=== PATIENT | female | born 1975 | race Caucasian/White ===

== ENCOUNTER → 2023-12-02 | Outpatient (CLI) | payer MEDICAID, SELFPAY ==
--- NOTE | 2023-12-02 10:15 | MRI_ITS ---
STUDY: MRI RIGHT SHOULDER REASON FOR EXAM: Female, 48 years old. Pain 2 year post op, rule out retear. Surgery to right shoulder/biceps tendon repair + rotator cuff tear. TECHNIQUE: Standardized fat and water weighted pulse sequences were obtained in all 3 orthogonal planes. COMPARISON: Right shoulder radiographs dated 11/18/2023. FINDINGS: There are postoperative changes related to prior rotator cuff repair surgery, with multiple anchors in the humeral head. There is mild supraspinatus and infraspinatus tendinosis without a full-thickness tear. Normal subscapularis tendon. Normal teres minor tendon. Normal supraspinatus muscle. Normal infraspinatus muscle. Normal subscapularis muscle. Normal teres minor muscle. There is a suspected tear of the posterior glenoid labrum (axial PD series 3 images 13-14). There is a small glenohumeral joint effusion. Intact humeral head and visualized proximal humerus. The intracapsular long biceps tendon is absent, probably related to biceps tenodesis. There are postoperative changes related to prior distal clavicle resection/acromioplasty. There is a Type II morphology (curved), with a posterior downsloping orientation. There is a small amount of subacromial-subdeltoid bursal fluid. Normal visualized coracohumeral and coracoacromial ligaments. Normal quadrilateral space. Normal axillary space. Normal deltoid muscle. Normal trapezius muscle. MRI/Upper Ext Joint Only(Routine) IMPRESSION: Postoperative changes related to prior rotator cuff repair surgery, distal clavicle resection/acromioplasty, and biceps tenodesis. Mild supraspinatus and infraspinatus tendinosis without a full-thickness rotator cuff tear. Suspected tear of the posterior glenoid labrum. Small glenohumeral joint effusion. Mild subacromial-subdeltoid bursitis. Electronically Signed: Zohaib Marcos MD at 12:19 EDT ,
== END | disposition home or self-care (01) ==
PROVIDERS: PCP Orthopaedic Surgery Sports Medicine; Referring Provider Orthopaedic Surgery Sports Medicine; Visit Provider Orthopaedic Surgery Sports Medicine
DX: M25.511 Pain in right shoulder (principal)
CPT/HCPCS: 73221

== ENCOUNTER → 2024-10-24 | Outpatient (CLI) | payer MEDICAID, SELFPAY ==
--- NOTE | 2024-10-24 15:30 | MRI_ITS ---
PROCEDURE: LOWER EXT JOINT ONLY (ROUTINE) 10/24/2024 REASON FOR EXAM: PAIN, MECHANICAL SX TECHNIQUE: MRI of the Lower Extremity. Multiplanar and multisequence images were obtained without IV contrast administration. COMPARISON: COMPARISON : none FINDINGS: Subcortical marrow edema of the posteromedial aspect of the medial femoral condyle. High signal of the patellar articular cartilage with underlying marrow edema. The posterior horn of the medial meniscus shows high signal not interrupting the meniscal articular surfaces. Intact lateral meniscus. Intact anterior and posterior cruciate ligament. Intact collateral and retinacular ligaments. Intact patellar and quadriceps tendons. Mild knee joint effusion with no synovial hypertrophy. No marrow infiltrative lesions. Normal MR appearance of the deng-articular musculature with preserved inter- muscular fat planes. Mild pre-patellar subcutaneous soft tissue edema. MRI/Lower Ext Joint Only (Routine) IMPRESSION: Medial femoral condyle trabecular injury. Grade III patellar chondromalacia. Grade I signal of the posterior horn of the medial meniscus. Mild knee joint effusion. Reading [facility]
== END | disposition home or self-care (01) ==
LOC: MRI 11:16
PROVIDERS: Referring Provider Orthopaedic Surgery Sports Medicine; Visit Provider Orthopaedic Surgery Sports Medicine
DX: M25.562 Pain in left knee (principal)
CPT/HCPCS: 73721